=== PATIENT | female | born 1940 | race Caucasian/White ===

== ENCOUNTER → 2020-12-11 15:23 | Outpatient (BNVA) | payer MEDICARE, OTHER, SELFPAY | PROVIDERS: PCP Nurse Practitioner Family; Visit Provider Student in an Organized Health Care Education/Training Program | DX: M34.9 Systemic sclerosis, unspecified (principal); I73.00 Raynaud's syndrome without gangrene; E83.59 Other disorders of calcium metabolism | CPT/HCPCS: 99212 ==

== ENCOUNTER 2021-02-08 09:59 | Outpatient (REF) | payer MEDICARE, OTHER, SELFPAY ==
--- NOTE | ~2021-02-08 | XR_ITS ---
EXAMINATION: XR HAND, RIGHT CLINICAL INFORMATION: Right hand pain. COMPARISON: Right hand radiographs dated 07/13/2018. TECHNIQUE: PA, lateral, and oblique views of the right hand. FINDINGS: Positive ulnar variance is unchanged. 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 Gehgkagp-[id number]-hirftl degenerative arthritis redemonstrated throughout the metacarpophalangeal and interphalangeal joints, progressed when compared to the prior examination. Lobulated calcification redemonstrated volar to the 2nd metacarpophalangeal joint, increased in size when compared to the prior examination. No osseous erosion. No acute fracture or dislocation. 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 Interval increase in size of lobulated calcification volar to the 2nd metacarpophalangeal joint. Stable ulnar-positive variance.
== END 2021-02-08 10:00 | disposition home or self-care (01) ==
LOC: HO.HOSX 09:59
PROVIDERS: Visit Provider Orthopaedic Surgery
DX: E83.59 Other disorders of calcium metabolism (principal); M34.9 Systemic sclerosis, unspecified; I73.00 Raynaud's syndrome without gangrene; R20.0 Anesthesia of skin; R20.2 Paresthesia of skin
CPT/HCPCS: 73130; 99202

== ENCOUNTER 2021-02-18 08:45 | Day surgery (SDC) | payer MEDICARE, OTHER, SELFPAY ==
--- NOTE | 2021-02-17 09:03 | P.CONAN_ITS ---
Documented by User: Whit Rao NP 02/17/21 09:46 HPI - Anesthesia Eval Consult details Narrative: 80yo F for Right Excision Soft Tissue hand PMFSH Active Problems Active Problems: All Active Problems (Updated 02/08/21 @ 16:52 by Sushma Aguilar MD) Numbness and tingling in both hands (Acute) Calcinosis (Acute) Pulmonary hypertension (Acute) Raynaud phenomenon (Acute) Limited scleroderma (Acute) Past Medical History Medical History Anxiety and depression Asthma with COPD CREST (calcinosis, Raynaud's phenomenon, esophageal dysfunction, sclerodactyly, telangiectasia) Diverticulitis GERD (gastroesophageal reflux disease) HLD (hyperlipidemia) HTN (hypertension) Limited scleroderma Pulmonary hypertension Raynaud phenomenon Smoker Surgical History Surgical History (Updated 02/18/21 @ 08:50 by Bhavya Dai RN) History of colon resection Hx of hysterectomy Social History Social History (Updated 12/11/20 @ 15:32 by Magnolia Pickard CMA) Alcohol intake: former Patient Tobacco Use Status: Current someday Tobacco user Tobacco use type: Cigarette Cigarettes Per Day: 4 Years Smoked: 30 YRS Use of substances other than those prescribed or required for medical reasons: No Are you DNR?: No Advance Directives: No Advance Directives Information Provided: Yes Meds Allergies Allergy/AdvReac Type Severity Reaction Status Date / Time No Known Allergies Allergy Verified 02/18/21 08:50 Home Medications Medication Instructions Recorded Confirmed Last Taken Type albuterol sulfate 90 mcg/actuation 2 puff INHALATION Q6H PRN 12/11/20 12/11/20 Unknown History aerosol inhaler atorvastatin 40 mg tablet 40 mg PO BEDTIME 12/11/20 12/11/20 Unknown History baclofen 20 mg tablet 20 mg PO BEDTIME 12/11/20 12/11/20 Unknown History cholecalciferol (vitamin D3) 50 50 mcg PO DAILY 12/11/20 12/11/20 Unknown History mcg (2,000 unit) capsule docusate sodium 100 mg capsule 100 mg PO DAILY 12/11/20 12/11/20 Unknown History (Colace) fluticasone propionate 50 1 spray INTRANASAL DAILY 12/11/20 12/11/20 Unknown History mcg/actuation nasal spray,suspension lisinopril 40 mg tablet 40 mg PO DAILY 12/11/20 12/11/20 Unknown History loratadine 10 mg tablet 10 mg PO DAILY 12/11/20 12/11/20 Unknown History melatonin 5 mg capsule 5 mg PO .at bedtime cap 12/11/20 12/11/20 Unknown History naproxen 500 mg tablet 500 mg PO BID 12/11/20 12/11/20 Unknown History omeprazole 20 mg capsule,delayed 20 mg PO DAILY 12/11/20 12/11/20 Unknown History release oxycodone-acetaminophen 5 mg-325 1 tab PO Q8H PRN 12/11/20 12/11/20 Unknown History mg tablet (Percocet) sertraline 50 mg tablet (Zoloft) 50 mg PO DAILY 12/11/20 12/11/20 Unknown History tiotropium bromide 18 mcg capsule 1 cap INHALATION DAILY 12/11/20 12/11/20 Unknown History with inhalation device (Spiriva with HandiHaler) Exam Exam Date and Time: February 17, 2021 0903 Narrative Narrative: ECHO 06/2019 LV systolic function is normal. LVEF 65-70% Gr 2 DD Indeterminate filling pressures LA severely dilated Mild mitral regurg Mild to moderate tricuspid regurg Moderate pulm htn PFT 06/2019 Forced vital capacity, FEV1, [id number], and MVV are all normal. Post bronchodilator therapy, there is no significant change. Lung volumes: The patient was unable to perform adequate maneuvers. Diffusion capacity: Normal. CONCLUSION: Lung volumes could not be performed adequately. Otherwise, there is no evidence of obstructive or restrictive pulmonary disease. No response to bronchodilator therapy. Assessment and Plan Assessment Anesthesia Assessment: Chart Reviewed Documented by User: Agustin Rosales MD 02/18/21 11:27 HPI - Anesthesia Eval Consult details Narrative: 80yo F for Right Excision Soft Tissue hand Diastolic dysfunction, pulmonary, no recent history of chest pain PMFSH Past Medical History Medical History Anxiety and depression Asthma with COPD CREST (calcinosis, Raynaud's phenomenon, esophageal dysfunction, sclerodactyly, telangiectasia) Diverticulitis GERD (gastroesophageal reflux disease) HLD (hyperlipidemia) HTN (hypertension) Limited scleroderma Pulmonary hypertension Raynaud phenomenon Smoker Family History Family history of problems with anesthesia: No Surgical History Surgical History (Updated 02/18/21 @ 08:50 by Bhavya Dai RN) History of colon resection Hx of hysterectomy History of Problems with Anesthesia: No Social History Social History (Updated 12/11/20 @ 15:32 by Magnolia Pickard CMA) Alcohol intake: former Patient Tobacco Use Status: Current someday Tobacco user Tobacco use type: Cigarette Cigarettes Per Day: 4 Years Smoked: 30 YRS Use of substances other than those prescribed or required for medical reasons: No Are you DNR?: No Advance Directives: No Advance Directives Information Provided: Yes Meds Allergies Allergy/AdvReac Type Severity Reaction Status Date / Time No Known Allergies Allergy Verified 02/18/21 08:50 Home Medications Medication Instructions Recorded Confirmed Last Taken Type albuterol sulfate 90 mcg/actuation 2 puff INHALATION Q6H PRN 12/11/20 12/11/20 Unknown History aerosol inhaler atorvastatin 40 mg tablet 40 mg PO BEDTIME 12/11/20 12/11/20 Unknown History baclofen 20 mg tablet 20 mg PO BEDTIME 12/11/20 12/11/20 Unknown History cholecalciferol (vitamin D3) 50 50 mcg PO DAILY 12/11/20 12/11/20 Unknown History mcg (2,000 unit) capsule docusate sodium 100 mg capsule 100 mg PO DAILY 12/11/20 12/11/20 Unknown History (Colace) fluticasone propionate 50 1 spray INTRANASAL DAILY 12/11/20 12/11/20 Unknown History mcg/actuation nasal spray,suspension lisinopril 40 mg tablet 40 mg PO DAILY 12/11/20 12/11/20 Unknown History loratadine 10 mg tablet 10 mg PO DAILY 12/11/20 12/11/20 Unknown History melatonin 5 mg capsule 5 mg PO .at bedtime cap 12/11/20 12/11/20 Unknown History naproxen 500 mg tablet 500 mg PO BID 12/11/20 12/11/20 Unknown History omeprazole 20 mg capsule,delayed 20 mg PO DAILY 12/11/20 12/11/20 Unknown History release oxycodone-acetaminophen 5 mg-325 1 tab PO Q8H PRN 12/11/20 12/11/20 Unknown History mg tablet (Percocet) sertraline 50 mg tablet (Zoloft) 50 mg PO DAILY 12/11/20 12/11/20 Unknown Hist ory tiotropium bromide 18 mcg capsule 1 cap INHALATION DAILY 12/11/20 12/11/20 Unknown History with inhalation device (Spiriva with HandiHaler) Exam Airway Mallampati Class: III TM Dist: >3cm Neck ROM: Full Assessment and Plan Assessment Anesthesia Assessment: Anesthesia Plan Discussed Final Anesthetic Review Family History of Problems with Anesthesia: No History of Problems with Anesthesia: No NPO: Yes ASA Class: III Final Preanesthetic Review: No Changes in Pt Med Stat, Meds/Allgs Chart Reviewed, Consent Obtained/Reviewed and Anes Risks/Benef Reviewed Patient Risk: High Procedure Risk: Low Anesthetic Plan Anesthetic Plan: MAC: and Regional Block Disposition: Standard PACU
[2021-02-18 08:57] VITALS: BP 160/73; PULSE 69; RESP 16; TEMP 36.4; O2SAT 97; BMI 25.8
[2021-02-18] MEDS: Lactated Ringers 1,000 ML 100 ML IVCONT (09:17)
--- NOTE | 2021-02-18 09:19 | ECG_ITS ---
Test Reason : INVERTED T WAVES Blood Pressure : / mmHG Vent. Rate : 061 BPM Atrial Rate : 061 BPM P-R Int : 154 ms QRS Dur : 076 ms QT Int : 452 ms P-R-T Axes : 050 027 189 degrees QTc Int : 455 ms Normal sinus rhythm with sinus arrhythmia Left ventricular hypertrophy with repolarization abnormality Abnormal ECG When compared with ECG of 06-APR-2012 15:37, ST now depressed in Inferior leads Non-specific change in ST segment in Anterior leads T wave inversion now evident in Inferior leads T wave inversion more evident in Anterolateral leads Clinical Correlation Advised Referred By: Agustin Rosales Electronically Signed By:CLIFF VITALE
--- NOTE | 2021-02-18 09:44 | PC.NURSE ---
STAT EKG ORDERED BY ANESTHESIA DUE TO INVERTED T WAVES. CARDIOLOGY CALLED FOR LAST EKG. COMPARISON DONE WITH OLD EKG AND NEW EKG AND SIMILAR. OK'D TO PROCEED BY ANESTHESIA.
[2021-02-18 11:35] VITALS: BP 143/65; PULSE 57; RESP 16; TEMP 36.1; O2SAT 98
[2021-02-18 11:50] VITALS: BP 140/74; PULSE 60; RESP 17; TEMP 36.1; O2SAT 97
--- NOTE | 2021-02-18 11:51 | P.OP_ITS ---
Operative Note Operative Note Date of Service: 02/18/21 Narrative: Operative Note Narrative: Preop diagnosis: Right hand soft tissue mass Postop diagnosis: Same Procedure: Right hand soft tissue mass excisional biopsy, 1.8 cm diameter Surgeon: Sushma Aguilar MD Anesthesia: Mac plus regional block Findings: Soft tissue mass measuring approximately 1.8 cm in diameter removed from patient's right hand over the index finger A1 timbo area. Likely calcinosis Implants: None Tourniquet time: 25 minutes EBL: 5.0 ml Specimen: Right hand soft tissue mass sent for histopathology Drains: None Complications: None Disposition: Brought to the recovery room in stable condition Plan: Follow-up in 10-14 days for wound check, suture removal and to check pathology Indications: The patient is a 80 year old woman with scleroderma, Raynaud Downs, and a large area of calcinosis in the A1 tmibo area of the right index finger. . The risks and benefits of operative treatment, including but not limited to risk of damage to blood vessels, nerves, tendons, infection, recurrence, persistent pain or numbness, incomplete resolution of preoperative symptoms, or need for further surgery were discussed with the patient and they wished to proceed with surgery. Procedure: Once consent was obtained patient was brought back to the operating suite and placed in the operating table in a supine position. A regional block was performed by the anesthesia team. Perioperative antibiotics and anesthesia was administered by the anesthesia team. A tourniquet was applied to the proximal aspect of the right upper extremity and the limb was prepped and draped in a standard surgical fashion. The limb was elevated exsanguinated with Esmarch bandage and the tourniquet inflated to 250 mm of mercury for a total tourniquet time of 25 minutes. A zigzag incision was made over the soft tissue mass which was in the area of the A1 timbo of the right index finger. The incision was made through the skin the subcutaneous tissues using a 15. Blade. I then used iris scissors to carefully dissect the overlying skin from the subcutaneous portion of the mass. The mass deeply lay against in about both the and a radial neurovascular bundle, and the 2nd common digital nerve. These neurovascular bundles were carefully dissected free from the overlying soft tissue mass. Soft tissue mass was then dissected free and removed from the patient and placed on the back table to be sent for histopathology. It measured approximately 1.8 cm in diameter. At this point the tourniquet was deflated and hemostasis obtained with a brief period of local pressure . The wound was copiously irrigated with normal saline. The skin edges were reapproximated with 5-0 nylon suture. The wound was infiltrated with some 0.5% plain Marcaine for postop pain control and a airam rile dressing was applied. The patient appears to have tolerated the procedure well and with no complications. All digits were well vascularized conclusion of the case.
--- NOTE | 2021-02-18 11:51 | MHC.SHP ---
Pre-Procedural Eval Section A Date of Service: 02/18/21 The patient is an INPATIENT: No Changes since office visit: No Cold of Flu in the past 2 weeks, No New Medical Problems, No Changes in Medication and No Patient answered all questions The History & Physical has been completed within 30 days and I have reviewed it.: Yes Section B Chief Complaint: disorder calcium metabolism Allergies: Allergies Allergy/AdvReac Type Severity Reaction Status Date / Time No Known Allergies Allergy Verified 02/18/21 08:50 Plan I have reviewed the history and physical and performed a pertinent physical examination on my patient. No changes have occurred unless specified.
== END 2021-02-18 12:38 | disposition home or self-care (01) ==
PROVIDERS: Visit Provider Orthopaedic Surgery
PROC: (CPT 26111; principal; 2021-02-18 10:00)
DX: E83.59 Other disorders of calcium metabolism (principal); M79.89 Other specified soft tissue disorders; M34.9 Systemic sclerosis, unspecified; I73.00 Raynaud's syndrome without gangrene; M19.041 Primary osteoarthritis, right hand; M79.641 Pain in right hand; R20.2 Paresthesia of skin; R20.0 Anesthesia of skin; F17.210 Nicotine dependence, cigarettes, uncomplicated
CPT/HCPCS: 26111; 88305; 88307; 88311; 93005; J0690; J1100

== ENCOUNTER 2021-09-21 02:32 | Emergency (ER) | payer MEDICARE, OTHER, SELFPAY ==
--- NOTE | 2021-09-21 02:38 | ED_ITS ---
HPI - CPR General Stated Complaint: Code Time Seen by Provider: 09/21/21 02:38 Source: EMS Mode of arrival: EMS History of Present Illness HPI narrative: Patient had a witnessed cardiac arrest. she had 38 minutes of CPR prior to arrival with 5 rounds of epi. Patient might have had a few minutes of ROSC prior to arrival but presented in cardiac arrest. Onset (ago): minute(s) Timing confirmed by: family member Place: home Bystander CPR performed: Yes Initial findings in the field: unresponsive, no respirations, no pulse and PEA ROSC in the field: Yes Associated injuries: Yes Treatments prior to arrival: BMV, chest compressions and epinephrine mgs # Related Data Home Medications Medication Instructions Recorded Confirmed albuterol sulfate 90 mcg/actuation 2 puff INHALATION Q6H PRN 12/11/20 12/11/20 aerosol inhaler atorvastatin 40 mg tablet 40 mg PO BEDTIME 12/11/20 12/11/20 baclofen 20 mg tablet 20 mg PO BEDTIME 12/11/20 12/11/20 cholecalciferol (vitamin D3) 50 50 mcg PO DAILY 12/11/20 12/11/20 mcg (2,000 unit) capsule docusate sodium 100 mg capsule 100 mg PO DAILY 12/11/20 12/11/20 (Colace) fluticasone propionate 50 1 spray INTRANASAL DAILY 12/11/20 12/11/20 mcg/actuation nasal spray,suspension lisinopril 40 mg tablet 40 mg PO DAILY 12/11/20 12/11/20 loratadine 10 mg tablet 10 mg PO DAILY 12/11/20 12/11/20 melatonin 5 mg capsule 5 mg PO .at bedtime cap 12/11/20 12/11/20 naproxen 500 mg tablet 500 mg PO BID 12/11/20 12/11/20 omeprazole 20 mg capsule,delayed 20 mg PO DAILY 12/11/20 12/11/20 release oxycodone-acetaminophen 5 mg-325 1 tab PO Q8H PRN 12/11/20 12/11/20 mg tablet (Percocet) sertraline 50 mg tablet (Zoloft) 50 mg PO DAILY 12/11/20 12/11/20 tiotropium bromide 18 mcg capsule 1 cap INHALATION DAILY 12/11/20 12/11/20 with inhalation device (Spiriva with HandiHaler) Previous Rx's Medication Instructions Recorded tiotropium bromide 18 mcg capsule 1 cap INHALATION DAILY 30 Days #60 07/21/20 with inhalation device (Spiriva inh with HandiHaler) hydrocodone 5 mg-acetaminophen 325 1 tab PO Q4-6H PRN #5 tab 02/18/21 mg tablet amlodipine 10 mg tablet 10 mg PO DAILY #30 tab 03/01/21 Allergies Allergy/AdvReac Type Severity Reaction Status Date / Time No Known Allergies Allergy Verified 02/18/21 08:50 Review of Systems Review of Systems: Yes Unobtainable due to mental status [facility] Past Medical History Medical History Anxiety and depression Asthma with COPD CREST (calcinosis, Raynaud's phenomenon, esophageal dysfunction, sclerodactyly, telangiectasia) Diverticulitis GERD (gastroesophageal reflux disease) HLD (hyperlipidemia) HTN (hypertension) Limited scleroderma Pulmonary hypertension Raynaud phenomenon Smoker Surgical History History of colon resection Hx of hysterectomy Social History Social History Alcohol intake: former Patient Tobacco Use Status: Current someday Tobacco user Tobacco use type: Cigarette Cigarettes Per Day: 4 Years Smoked: 30 YRS Advance Directives: No Advance Directives Information Provided: No Physical Exam Const: Other: obese, cpr, crow airway in place HEENT: Other: fixed and dilated Chest: Other: no pulses, no heart sounds Resp: Other: bilateral BS with bagging Neuro: Other: no movement Course Reevaluation(s) Reevaluation #1: Bedside us only shows minor twitch with bradycardia, no contractions, code called at2:36am Time: 02:44 Discharge Plan Discharge Clinical Impression: Cardiac arrest Patient Disposition: on Arrival Prescriptions: No Action Spiriva with HandiHaler 18 mcg capsule, w/inhalation device 1 cap inhalation DAILY 30 Days Qty: 60 6RF Rx Instructions: puncture 1 cap using device; one dose = 2 inhalations amlodipine 10 mg tablet 10 mg PO DAILY Qty: 30 3RF hydrocodone-acetaminophen 5-325 mg tablet 1 tab PO Q4-6H PRN (Reason: pain) Qty: 5 0RF cholecalciferol (vitamin D3) 50 mcg (2,000 unit) capsule 50 mcg PO DAILY 0RF sertraline [Zoloft] 50 mg tablet 50 mg PO DAILY 0RF albuterol sulfate 90 mcg/actuation HFA aerosol inhaler 2 puff inhalation Q6H PRN0RF oxycodone-acetaminophen [Percocet] 5-325 mg tablet 1 tab PO Q8H PRN0RF omeprazole 20 mg capsule,delayed release(DR/EC) 20 mg PO DAILY 0RF naproxen 500 mg tablet 500 mg PO BID 0RF melatonin 5 mg capsule 5 mg PO .at bedtime 0RF loratadine 10 mg tablet 10 mg PO DAILY 0RF lisinopril 40 mg tablet 40 mg PO DAILY 0RF fluticasone propionate 50 mcg/actuation spray,suspension 1 spray intranasal DAILY 0RF Rx Instructions: administer into each nostril docusate sodium [Colace] 100 mg capsule 100 mg PO DAILY 0RF baclofen 20 mg tablet 20 mg PO BEDTIME 0RF atorvastatin 40 mg tablet 40 mg PO BEDTIME 0RF Spiriva with HandiHaler 18 mcg capsule, w/inhalation device 1 cap inhalation DAILY 0RF Rx Instructions: puncture 1 cap using device; one dose = 2 inhalations
[2021-09-21 02:39] VITALS: BP 00/00; PULSE 0; RESP 0; TEMP -17.7; TEMP 0; O2SAT 0; BMI 27.9
--- NOTE | 2021-09-21 07:06 | PC.NURSE ---
Patient arrrived via EMS with CPR in progress and patient intubated. Patient arrived at 0232. MD performed ultasound at bedside to check for cardiac activity and there was none. Patient pronounced at 0236. Family notified as well as organ bank.
== END 2021-09-21 04:30 | disposition expired ==
PROVIDERS: Emergency Provider Emergency Medicine
DX: I46.9 Cardiac arrest, cause unspecified (principal); Z79.899 Other long term (current) drug therapy
CPT/HCPCS: 99283